=== PATIENT | female | born 1960 | race Caucasian/White ===

== ENCOUNTER → 2017-06-09 | Outpatient (CLI) | payer MEDICARE, MEDICAID ==
[~2017-06-09] MED LIST: ANTIVERT/2525 M1 PO; NKHM; ULTRAM50 MG PO
== END ==
LOC: RAD 13:00
DX: M17.0 Bilateral primary osteoarthritis of knee (principal); C79.51 Secondary malignant neoplasm of bone; Z85.3 Personal history of malignant neoplasm of breast

== ENCOUNTER → 2017-06-19 | Outpatient (CLI) | payer MEDICARE, MEDICAID | END | disposition home or self-care (01) | LOC: MRI 08:52 | DX: M17.12 Unilateral primary osteoarthritis, left knee (principal); M25.462 Effusion, left knee; C79.51 Secondary malignant neoplasm of bone; Z85.3 Personal history of malignant neoplasm of breast ==

== ENCOUNTER → 2018-08-03 | Outpatient (CLI) | payer OTHER | END | disposition home or self-care (01) | LOC: US 12:00 | DX: I82.812 Embolism and thrombosis of superficial veins of left lower extremity (principal); I82.4Z2 Acute embolism and thrombosis of unspecified deep veins of left distal lower extremity; M79.89 Other specified soft tissue disorders ==

== ENCOUNTER → 2019-07-25 | Outpatient (CLI) | payer OTHER ==
[2019-07-25 15:41] LABS: ALBUMIN 3.6 gm/dl (3.1-4.5); ALKALINE PHOSPHATASE 53 U/L (45-117); BUN 12 mg/dl (7-24); CHLORIDE 108 mmol/L (98-107); CREATININE 0.91 mg/dL (0.55-1.02); POTASSIUM 4.4 mmol/L (3.5-5.1); SGOT/AST 31 IU/L (3-35); SGPT/ALT 38 U/L (12-78); SODIUM 141 mmol/L (136-145); TOTAL PROTEIN 6.7 gm/dL (6.4-8.2)
== END | disposition home or self-care (01) ==
LOC: US 15:09
PROVIDERS: Internal Medicine
DX: R60.0 Localized edema (principal)

== ENCOUNTER → 2021-08-11 | Outpatient (CLI) | payer OTHER | END | disposition home or self-care (01) | LOC: COVID19 15:58 | PROVIDERS: ATTEND Internal Medicine | DX: Z20.822 Contact with and (suspected) exposure to COVID-19 (principal) ==